=== PATIENT | male | born 1995 | race Caucasian/White ===

== ENCOUNTER 2024-05-30 09:47 | Emergency (ER) | payer BC ==
[~2024-05-30] VITALS: Ht 188 cm; Wt 74.8 kg
[2024-05-30 09:52] VITALS: BP 129/101; TEMP 98.3
[2024-05-30] MEDS ORDERED: HYDROCODONE/APAP 5/325MG TABLET ONE (10:22)
[2024-05-30] MEDS ORDERED: ONDANSETRON 4 MG TAB.RAPDIS ONE (10:22)
[2024-05-30] MEDS: HYDROCODONE/APAP 5/325MG TABLET PO ONE (10:24)
[2024-05-30] MEDS: ONDANSETRON 4 MG TAB.RAPDIS PO ONE (10:25)
[2024-05-30] MEDS ORDERED: LIDOCAINE 1% INJ 50 ML MDV IJ ONE (10:59)
[2024-05-30] MEDS: LIDOCAINE 1% INJ 50 ML MDV IJ ONE (11:02)
[2024-05-30] MEDS ORDERED: SULF1TAB47 PO (11:14)
[2024-05-30] MEDS ORDERED: CEPH-570 PO (11:16)
[2024-05-30] MEDS ORDERED: SULF1TAB48 PO (11:18)
[2024-05-30] MEDS ORDERED: HYDR-4303 PO (12:57)
[2024-05-30 13:01] VITALS: O2SAT 97
== END 2024-05-30 13:02 | disposition home or self-care (01) ==
LOC: ER 10:05
DX: S30.0XXA Contusion of lower back and pelvis, initial encounter (principal); K61.0 Anal abscess; M53.3 Sacrococcygeal disorders, not elsewhere classified; Z90.49 Acquired absence of other specified parts of digestive tract; W18.30XA Fall on same level, unspecified, initial encounter; Y93.89 Activity, other specified; Y92.89 Other specified places as the place of occurrence of the external cause; Y99.8 Other external cause status
CPT/HCPCS: 46050; 99284; 72220; J3490; A6403; A6407; Q0162